=== PATIENT | female | born 1985 | race Caucasian/White ===

== ENCOUNTER 2024-12-12 08:44 | Outpatient (CLI) | payer OTHER, SELFPAY ==
[2024-12-12 09:07] LABS: Hematocrit 43.3 % (37.0-47.0); Hemoglobin 14.1 g/dL (12.0-15.0); Mean Corpuscular HGB Conc 32.6 g/dl (32-36); Mean Corpuscular Hemoglobin 29.9 pg (26-34); Mean Corpuscular Volume 91.7 fl (80-100); Mean Platelet Volume 9.4 fl (7.4-10.4); Platelet Count Result 268 k/mm3 (150-375); Red Blood Count 4.72 M/mm3 (4.2-5.4); Red Cell Distribution Width 13.6 % (11.5-14.5); White Blood Count 6.5 K/mm3 (4.5-10.0)
--- OUTSIDE RECORDS SUMMARY | 2024-12-12 09:08 | XMS_ITS | Data Portability ---
Author Organization [facility], [facility] Address [address] [place] [address] Care Team Providers Care Law Secretary Name Role Phone DOV BUENO Primary Care Provider Assessment No assessment recorded. Plan of Treatment Reminders Order Date Submit Date Provider Last Modified By Organization Details Last Modified Time Details Appointments None recorded. Lab pap, LB + HR HPV + reflex HPV (16+18) 2023 024 [facility], [address], [address], 4 02:13:45 lipid panel, serum 2023 024 [facility] (Lab), [address], [place], [address], 4 14:54:31 CMP, serum or plasma 2023 024 [facility] (Lab), [address] [place], [address], 4 14:54:33 TSH, serum or plasma 2023 024 [facility] (Lab), [address] [place], [address], 4 14:52:12 CBC 2023 024 [facility] (Lab), [address], [place], [address], 4 13:43:09 rapid strep group A, throat 2023 024 [facility] (Lab), [address], [place], [address], 4 17:08:31 rapid flu (A+B) 2023 024 [facility] (Lab), [address], [place], [address], 4 17:08:48 Referral None recorded. Procedures None recorded. Surgeries None recorded. Imaging None recorded. Medication Orders cetirizine 10 mg tablet [address] [facility], [address] [place] [address], [address], 4 09:03:16 fluticasone propionate 50 mcg/actuati on nasal spray,suspe nsion [address] [facility], [address] [place], [place] [address], [address], 4 09:03:20 dexamethaso ne 4 mg tablet [address] [facility], [address] [place] [address], [address], 4 09:03:00 albuterol sulfate HFA 90 mcg/actuati on aerosol inhaler [address] [facility] [address] [facility], [address] [place], [address], 4 09:03:11 benzonatate 200 mg capsule 2023 024 [facility], [address] [place], [address], 4 09:02:55 lisinopril 10 mg tablet 2022 023 [facility], [address] [place], [address], 4 09:09:21 hydroxyzine HCl 10 mg tablet 2022 023 [email or web address] [facility], [address] [place], [address], 15:14:33 Patient TargetsNo targets recorded. Patient Instructions Encounter Date Encounter Id Patient Instructions Last Modified By Organization Details Last Modified Time 06/18/2023 [id number] high blood pressure: care instructions Not available 06/18/2023 09:11:49 learning about high blood pressure Not available 06/18/2023 09:11:49 07/19/2023 [id number] high blood pressure: care instructions Not available 07/19/2023 17:32:55 learning about high blood pressure Not available 07/19/2023 17:32:55 body mass index: care instructions Not available 07/19/2023 18:04:47 learning about healthy weight Not available 07/19/2023 18:04:47 10/05/2023 [id number] sore throat: car e instructions Not available 10/05/2023 15:43:47 cough: care instructions Not available 10/05/2023 15:43:47 10/27/2023 [id number] Well Visit, Ages 18 to 65: Care Instructions Not available 10/27/2023 09:09:49 body mass index: care instructions Not available 10/27/2023 09:09:49 learning about healthy weight Not available 10/27/2023 09:09:49 Will call with lab results. Not available 10/27/2023 09:16:20 12/07/2023 [id number] psoriasis: care instructions Not available 12/07/2023 09:56:48 body mass index: care instructions Not available 12/07/2023 09:54:16 learning about healthy weight Not available 12/07/2023 09:54:16 Reason for Referral None Reported. Results Created Date Observation Date Name Description Value Unit Range Abnormal Flag Note LastModifiedBy Organization Detail LastModifiedTime 10/05/19 24 10/05/2023 URGEN T CARE2 -STRE P A AG, EIA staag2 NOT DETECT ED negati ve [facility] [address] [place] [id number] Not Available [facility] (Lab) [address] [place], [address], 10/05/2023 15:19:18 10/05/19 24 10/05/2023 URGEN T CARE2 -STRE P A AG, EIA expiration date: 03-02 Not Available [facility] (Lab) [address] [place], [address], 10/05/2023 15:19:18 10/05/19 24 10/05/2023 URGEN T CARE2 -STRE P A AG, EIA lot #: [id number] Not Available [facility] (Lab) [address] [place], [address], 10/05/2023 15:19:18 10/05/19 24 10/05/2023 URGEN T CARE2 -STRE P A AG, EIA internal QC: PASS Not Available [facility] (Lab) [address] [place], [address], 10/05/2023 15:19:18 10/05/19 24 10/05/2023 URGEN T CARE2 FLUEN ZA AB,AG EIA fluabag2 NEGATI VE negati ve [facility] URGEN T [facility]ARE AT [facility] [address] [place] [address] Not Available [facility] (Lab) [address] [place], [address], 10/05/2023 15:27:36 10/05/19 24 10/05/2023 URGEN T CARE2 FLUEN ZA AB,AG EIA expiration date: 11-24 Not Available [facility] (Lab) [address] [place], [address], 10/05/2023 15:27:36 10/05/19 24 10/05/2023 URGEN T CARE2 FLUEN ZA AB,AG EIA lot #: [id number] Not Available [facility] (Lab) [address] [place], [address], 10/05/2023 15:27:36 10/05/19 24 10/05/2023 URGEN T CARE2 FLUEN ZA AB,AG EIA internal QC: PASS Not Available [facility] (Lab) [address] [place], [address], 10/05/2023 15:27:36 10/27/19 24 10/27/2023 CBC W-PLT WBC 7.80 K/uL 3.98-1 0.04 The follo wing test( s) was perfo rmed on the Sysme x XN-20 00 (Larry tolog y Kamini zer). Pleas e take note of new refer ence range s. Not Available [facility] (Lab) [address] [place], [address], 10/27/2023 13:43:09 10/27/19 24 10/27/2023 CBC W-PLT RBC 5.10 mil/u L 3.93-5 .22 Not Available [facility] (Lab) [address] [place], [address], 10/27/2023 13:43:09 10/27/19 24 10/27/2023 CBC W-PLT HGB 15.2 gm/dL 12.0-1 6.0 Not Available [facility] (Lab) [address] [place], [address], 10/27/2023 13:43:09 10/27/19 24 10/27/2023 CBC W-PLT hematocrit 46.5 % 36.0-4 8.0 Not Available [facility] (Lab) [address] [place], [address], 10/27/2023 13:43:09 10/27/19 24 10/27/2023 CBC W-PLT MCV 91.2 fL 79.4-9 4.8 Not Available [facility] (Lab) [address] [place], [address], 10/27/2023 13:43:09 10/27/19 24 10/27/2023 CBC W-PLT MCH 29.8 pg 25.6-3 2.2 Not Available [facility] (Lab) [address] [place], [address], 10/27/2023 13:43:09 10/27/19 24 10/27/2023 CBC W-PLT MCHC 32.7 g/dL 32.2-3 5.5 Not Available [facility] (Lab) [address] [place] [place], [address], 10/27/2023 13:43:09 10/27/19 24 10/27/2023 CBC W-PLT plt 301 K/uL 182-36 9 Not Available [facility] (Lab) [address] [place], [address], 10/27/2023 13:43:09 10/27/19 24 10/27/2023 CBC W-PLT MPV 10.0 fL 9.4-12 .3 Not Available [facility] (Lab) [address], [place], [address], 10/27/2023 13:43:09 10/27/19 24 10/27/2023 THYRO ID STIM TSH TSH 1.21 uIU/m L 0.55-4 .78 Not Available [facility] (Lab) [address] [place], [address], 10/27/2023 14:52:12 10/27/19 24 10/27/2023 LIPID PANEL trig 51 mg/dL 0-150 SAMPL E TYPE: TRIGL YCERI DE REFER ENCE RANGE : Isabel l less than (<)15 0 mg/dl Borde rline High 150-1 99 mg/dl High 200-4 99 mg/dl Very High great er than/ equal to 500 mg/dl Not Available [facility] (Lab) [address], [place], [address], 10/27/2023 14:54:31 10/27/19 24 10/27/2023 LIPID PANEL chol 225 mg/dL 0-200 high Low-r isk level s (kenya rable ) less than 200 mg/dL Moder ate-r isk level s (bord karen e) 200-2 39 mg/dL High- risk level s great er than 240 mg/dL PERFO RMED ON THE ATELL ICA CHEMI STRY PLATF ORM Not Available [facility] (Lab) [address] [place], [address], 10/27/2023 14:54:31 10/27/19 24 10/27/2023 LIPID PANEL HDL 95.9 mg/dL Low (unde sirab le, high risk) : <40 mg/dl High (kenya rable , low risk) : >60 mg/dl Not Available [facility] (Lab) [address] [place], [address], 10/27/2023 14:54:31 10/27/19 24 10/27/2023 LIPID PANEL cldl 119 50-120 Not Available [facility] (Lab) [address] [place], [address], 10/27/2023 14:54:31 10/27/19 24 10/27/2023 LIPID PANEL LDL HDL ratio 1.2 calcu lated 0-4 Not Available [facility] (Lab) [address] [place], [address], 10/27/2023 14:54:31 10/27/19 24 10/27/2023 LIPID PANEL chol HDL ratio 2.30 calcu lated 0-4.0 Not Available [facility] (Lab) [address] [place], [address], 10/27/2023 14:54:31 10/27/19 24 10/27/2023 COMP METAB PANEL sodium 138 mmol/ L 136-14 5 Not Available [facility] (Lab) [address] [place], [address], 10/27/2023 14:54:33 10/27/19 24 10/27/2023 COMP METAB PANEL potassium 4.0 mmol/ L 3.5-5. 1 Not Available [facility] (Lab) [address] [place], [address], 10/27/2023 14:54:33 10/27/19 24 10/27/2023 COMP METAB PANEL chloride 105 mmol/ L 98-109 Not Available [facility] (Lab) [address] [place], [address], 10/27/2023 14:54:33 10/27/19 24 10/27/2023 COMP METAB PANEL CO2 25 mmol/ L 21-32 Not Available [facility] (Lab) [address] [place], [address], 10/27/2023 14:54:33 10/27/19 24 10/27/2023 COMP METAB PANEL gap 12.4 calcu lated 5-15 The calcu lated Anion Gap is deriv ed from the measu remen t of elect rolyt es perfo rmed on the Sieme Atell ica Chemi stry Platf orm Note: Lytes /GAP Earnest bianchi of refer ence range (05/15) Not Available [facility] (Lab) [address] [place], [address], 10/27/2023 14:54:33 10/27/19 24 10/27/2023 COMP METAB PANEL glu 98 mg/dL 74-106 Note: Refer ence Range Persaud e Perfo rmed on the Atell ica Chemi stry Platf orm Not Available [facility] (Lab) [address] [place], [address], 10/27/2023 14:54:33 10/27/19 24 10/27/2023 COMP METAB PANEL BUN 10 mg/dL 9-23 NOTE: BUN Refer ence Range Earnest arias Not Available [facility] (Lab) [address] [place], [address], 10/27/2023 14:54:33 10/27/19 24 10/27/2023 COMP METAB PANEL crea 0.7 mg/dL 0.5-1. 5 Not Available [facility] (Lab) [address] [place], [address], 10/27/2023 14:54:33 10/27/19 24 10/27/2023 COMP METAB PANEL ada 275 mOsm/ kg 270-30 0 Not Available [facility] (Lab) [address] [place], [address], 10/27/2023 14:54:33 10/27/19 24 10/27/2023 COMP METAB PANEL Ca 9.8 mg/dL 8.5-10 .4 Not Available [facility] (Lab) [address] [place], [address], 10/27/2023 14:54:33 10/27/19 24 10/27/2023 COMP METAB PANEL TP 6.9 g/dL 6.4-8. 2 Not Available [facility] (Lab) [address] [place], [address], 10/27/2023 14:54:33 10/27/19 24 10/27/2023 COMP METAB PANEL alb 4.9 g/dL 3.2-4. 8 high Not Available [facility] (Lab) [address] [place], [address], 10/27/2023 14:54:33 10/27/19 24 10/27/2023 COMP METAB PANEL bilt 1.0 mg/dL 0.3-1. 2 PERFO RMED ON THE AT[facility] CHEMI STRY PLATF ORM Note: Refer ence Delbert persaud es on Not Available [facility] (Lab) [address] [place], [address], 10/27/2023 14:54:33 10/27/19 24 10/27/2023 COMP METAB PANEL AST 23 U/L 15-37 Not Available [facility] (Lab) [address] [place], [address], 10/27/2023 14:54:33 10/27/19 24 10/27/2023 COMP METAB PANEL ALP 50 U/L 45.0-1 29.0 Not Available [facility] (Lab) [address] [place], [address], 10/27/2023 14:54:33 10/27/19 24 10/27/2023 COMP METAB PANEL ALT 24 U/L 10-49 Not Available [facility] (Lab) [address] [place], [address], 10/27/2023 14:54:33 10/27/19 24 10/27/2023 COMP METAB PANEL BUN/creat ratio 14 calcu lated 6-22 Not Available [facility] (Lab) [address] [place], [address], 10/27/2023 14:54:33 10/27/19 24 10/27/2023 COMP METAB PANEL GFR 99 calcu lated GFR is calcu lated based on [facility] (Afri can Ameri can or Non-A frica n Ameri can) Age and Sex from the [facility] Minorbreanna rodriguez on Infor matio n. REFER ENCE RANGE S: [place] ge GFR for Healt hy Adult s: >6 0 mL/mi n/1.7 3 m^2 Chron ic Kidne y Disea se: 15 - 60 mL/mi n/1.7 3 m^2 Kidne y Failu re: <15 mL/mi n/1.7 3 m^2 NOTE: Refer ence range s are not avail able for patie nts <18 years of age and will be resul lucero TNP (test not perfo rmed) . The eGFR equat ion has not been valid ated in patie nts older than 70, but an MDRD- deriv ed eGFR may still be a usefu l tool for jocelyni mariza wen for patie nts older than 70. Not Available [facility] (Lab) [address], [place], [address], 10/27/2023 14:54:33 Result Notes None recorded. Procedures Surgical History Date Name Laterality Status Provider Name and Address Organization Details Recorded Time 10/27/19 24 Lab Draw - Routine venipuncture completed Lali Garcia CMA [facility] 10/27/2023 09:38:37 09/27/19 00 Date of Last Pap Smear completed Heike Ramirez CMA [facility] 06/18/2023 09:04:05 Ear Tubes completed Heike Ramirez CMA [facility] 10/26/2022 09:16:50 Imaging Results None recorded. Procedure Notes None recorded. Medical Equipment None Reported. Allergies Allergen ID Allergen Name Allergen Category Reaction Reaction Severity Criticality Documentation Date Start Date Code Code System Note Provider Name and Address Organization Details Recorded Time [id number] amoxicill in medicatio n Not available Not available Not available 10/26/2022 723 RxNorm JUAN JOSE Allred [facility] 09:12:53 [id number] amoxicill in trihydrat e medicatio n itching moderate Not available 06/18/2023 [id number] RxNorm JUAN JOSE Allred [facility] 09:04:05 Medications Name Sig Start Date Stop Date Status Note LastModified by Organization Details LastModified Time cetirizine 10 mg tablet Take 1 tablet every day by oral route at dinner for 30 days. 10/27 completed Not Available Not Available Not Available benzonatate 200 mg capsule TAKE 1 CAPSULE BY MOUTH THREE TIMES DAILY FOR 10 DAYS 10/27 completed Not Available Not Available Not Available doxycycline monohydrate 100 mg capsule TAKE 1 CAPSULE BY MOUTH TWICE DAILY FOR 7 DAYS active Not Available Not Available No t Available dexamethason e 4 mg tablet TAKE 1 TABLET BY MOUTH TWICE DAILY FOR 4 DAYS 10/27 completed Not Available Not Available Not Available lisinopril 10 mg tablet TAKE 1 TABLET BY MOUTH ONCE DAILY FOR 30 DAYS 10/27 completed Not Available Not Available Not Available albuterol sulfate HFA 90 mcg/actuatio n aerosol inhaler INHALE 2 PUFFS BY MOUTH EVERY 4 HOURS 10/27 completed Not Available Not Available Not Available hydroxyzine HCl 10 mg tablet TAKE 1 TABLET BY MOUTH THREE TIMES DAILY NEEDED FOR 30 DAYS 2023 active Not Available Not Available Not Avai lable fluticasone propionate 50 mcg/actuatio n nasal spray,suspen griffin USE 1 SPRAY(S) IN EACH NOSTRIL ONCE DAILY 10/27 completed Not Available Not Available Not Available Vitals Date Recorded Body height Body mass index (BMI) Body weight Body temperature Heart rate Respiratory rate Oxygen saturation Oxygen saturation in Arterial blood by Pulse oximetry Systolic blood pressure Diastolic blood pressure Provider Name and Address Organization Details Last Updated DateTime 3 172.72 cm 30.3 kg/m2 97651.8 8 g 98.2 [degF] 72 /min 18 /min 98 % 98 % 140 mm[Hg] 91 mm[Hg] Heike Ramirez CMA [facility] 3 09:03:18 Date Recorded Body height Body mass index (BMI) Body weight Body temperature Heart rate Respiratory rate Oxygen saturation Oxygen saturation in Arterial blood by Pulse oximetry Systolic blood pressure Diastolic blood pressure Provider Name and Address Organization Details Last Updated DateTime 3 172.72 cm 31.5 kg/m2 06051.6 2 g 97.8 [degF] 70 /min 18 /min 98 % 98 % 132 mm[Hg] 84 mm[Hg] Heike Ramirez CMA [facility] 3 17:15:31 Date Recorded Body height Heart rate Body mass index (BMI) Body weight Body temperature Oxygen saturation Oxygen saturation in Arterial blood by Pulse oximetry Respiratory rate Pain severity - 0-10 verbal numeric rating [Score] - Reported Systolic blood pressure Diastolic blood pressure Provider Name and Address Organization Details Last Updated DateTime 4 172.72 cm 88 /min 30.6 kg/m2 44554.5 g 98.3 [degF] 98 % 98 % 18 /min 2 157 mm[Hg] 85 mm[Hg] Shaista Gusman RN [facility] 4 15:13:46 Date Recorded Body height Respiratory rate Body mass index (BMI) Body weight Body temperature Heart rate Oxygen saturation Oxygen saturation in Arterial blood by Pulse oximetry Systolic blood pressure Diastolic blood pressure Provider Name and Address Organization Details Last Updated DateTime 4 172.72 cm 18 /min 30.8 kg/m2 54119.0 6 g 98.1 [degF] 78 /min 97 % 97 % 122 mm[Hg] 67 mm[Hg] Lali Garcia CMA [facility] 4 09:00:32 Date Recorded Body height Respiratory rate Body mass index (BMI) Body weight Body temperature Heart rate Oxygen saturation Oxygen saturation in Arterial blood by Pulse oximetry Systolic blood pressure Diastolic blood pressure Provider Name and Address Organization Details Last Updated DateTime 4 172.72 cm 18 /min 30.7 kg/m2 22609.3 6 g 98 [degF] 73 /min 97 % 97 % 145 mm[Hg] 80 mm[Hg] Lali Garcia CMA [facility] 4 09:34:21 Social History Question Answer Notes LastModified by Organizat ion Details LastModified Time Tobacco Smoking Status Former Smoker Heike Ramirez CMA [facility] 06/18/2023 09:04:06 Do You Have An Advance Directive? No [email or web address] Information not available 07/19/2023 What Is Your Level Of Alcohol Consumption? Occasional [email or web address] Information not available 07/19/2023 How Many Times Per Week Do You Consume Alcohol? 1-2 Times Per Week [email or web address] Information not available 07/19/2023 Are You Blind Or Do You Have Difficulty Seeing? Yes [email or web address] Information not available 07/19/2023 What Is Your Level Of Caffeine Consumption? Heavy [email or web address] Information not available 07/19/2023 How Much Tobacco Do You Chew? None Information not available 07/19/2023 Are You Currently Employed? Yes [email or web address] Information not available 07/19/2023 Are You Deaf Or Do You Have Serious Difficulty Hearing? No [email or web address] Information not available 07/19/2023 What Type Of Diet Are You Following? REGULAR [email or web address] Information not available 07/19/2023 Which Illicit Or Recreational Drugs Have You Used? [place] [email or web address] Information not available 07/19/2023 Do You Or Have You Ever Used E-cigarettes Or Vape? Former User Of Electronic Cigarettes [email or web address] Information not available 07/19/2023 What Is The Highest Grade Or Level Of School You Have Completed Or The Highest Degree You Have Received? [id number] [email or web address] Information not available 07/19/2023 What Is Your Occupation? [employer] [email or web address] Information not available 07/19/2023 How Many Times Per Week Do You Exercise? 5-7 Times Per Week [email or web address] Information not available 07/19/2023 When Did You Quit Smoking? 6-10yearssince lastcigarette [email or web address] Information not available 07/19/2023 Are There Any Guns Present In Your Home? No [email or web address] Information not available 07/19/2023 Do You Feel Safe In Your Home? Yes [email or web address] Information not available 10/05/2023 Have You Ever Been Hurt By Someone Taking Care Of You? No [email or web address] Information not available 10/05/2023 Has Anyone Touched You In A Way You Didn t Like Or Threatened To Hurt You? No [email or web address] Information not available 10/05/2023 Any Thoughts Of Suicide? No Information not available 10/05/2023 Do You Have A Medical Power Of Jewel Bearing Turner? No [email or web address] Information not available 07/19/2023 What Was The Date Of Your Most Recent Tobacco Screening? 12/07/2023 [email or web address] Information not available 12/07/2023 Do You Have Any Pets? Yes [email or web address] Information not available 07/19/2023 What Is Your Relationship Status? Domestic Partner [email or web address] Information not available 07/19/2023 Do You Use Your Seat Belt Or Car Seat Routinely? Yes [email or web address] Information not available 07/19/2023 Are You Sexually Active? Yes [email or web address] Information not available 07/19/2023 Do You Have Smoke And Carbon Monoxide Detectors In Your Home? Yes [email or web address] Information not available 07/19/2023 Are You Passively Exposed To Smoke? No [email or web address] Information no t available 07/19/2023 Do You Or Have You Ever Used Smokeless Tobacco? Never Used Smokeless Tobacco [email or web address] Information not available 07/19/2023 How Much Tobacco Do You Smoke? No [email or web address] Information not available 07/19/2023 Do You Use Any Illicit Or Recreational Drugs? Yes [email or web address] Information not available 07/19/2023 Do You Use Sunscreen Routinely? Yes [email or web address] Information not available 07/19/2023 How Many Years Have You Smoked Tobacco? 10 [email or web address] Information not available 07/19/2023 Have You Recently Traveled Abroad? No [email or web address] Information not available 07/19/2023 Do You Or Have You Ever Used Any Other Forms Of Tobacco Or Nicotine? Yes [email or web address] Information not available 07/19/2023 Sex: Unknown Functional Status Question Answer Note LastModified by Organizat ion Details LastModified Time Do you have difficulty walking or climbing stairs? No [email or web address] Information not available 07/19/2023 Do you have difficulty doing errands alone? No oekeqmyqyi41 Information not available 07/19/2023 Are you able to care for yourself? Yes [email or web address] Information not available 07/19/2023 Do you have difficulty dressing or bathing? No [email or web address] Information not available 07/19/2023 What is your exercise level? Occasional [email or web address] Information not available 07/19/2023 Mental Status Question Answer Note LastModified by Organization D etails LastModified Time Do you have difficulty concentrating, remembering or making decisions? No [email or web address] Information no t available 07/19/2023 Family History Relationship Description Onset Age of this Age Resolved Age Notes LastModified by Organization Details LastModified Time Father Osteopenia [email or web address] Not cecy ilable 06/18/2023 09:04:05 Father Atrial fibrillation [email or web address] Not available 06/18/2023 09:04:05 Father Sleep apnea [email or web address] Not av ailable 06/18/2023 09:04:05 Father Osteoporosis [email or web address] Not a vailable 06/18/2023 09:04:05 Father Alcoholism [email or web address] Not cecy ilable 06/18/2023 09:04:05 Mother No current problems or disability [email or web address] Not available 09:04:05 Maternal Grandmother Diabetes mellitus fhzuvmxbdw76 Not available 09:04:05 Maternal Grandfather Cerebrovascu lar accident [email or web address] Not available 06/18/2023 09:04:05 Maternal Grandfather Alzheimer's disease [email or web address] Not available 09:04:05 Medical History Condition Response PATIENT DENIES SIGNIFICANT PAST MEDICAL HISTORY Y Gynecological History Statement/Question Response HPV Vaccine Y Date of Last Pap Smear 09/27/1999 LMP Approximate Date of LMP 07/12/2023 Obstetrics History GPAL:G 0 P 0 0 0 0 Immunizations Vaccine Type Date Status Note Provider Nam e and Address Organization Details Recorded Time Influenza, split virus, quadrivalent, PF 10/27/2023 completed DOV BUENO, BODY MECHANIC APPRENTICE [address], [place], [address], [facility] [place] [place] [facility] 10/27/2023 09:57:06 COVID-19, mRNA, LNP-S, bivalent, PF, 30 mcg/0.3 mL dose 07/19/2022 completed Heike Ramirez CMA null, [facility] [place] [facility] 06/18/2023 09:04:06 MMR 07/07/1995 completed Heike Ramirez CMA null, [place] - [facility] [place] [facility] 06/18/2023 09:04:06 tetanus toxoid, unspecified formulation 09/27/2020 completed Heike Ramirez CMA null, [place] - [facility] [place] [facility] 06/18/2023 09:04:06 influenza, unspecified formulation 07/01/2022 completed Heike Ramirez CMA null, [place] - [facility] [place] [facility] 06/18/2023 09:04:06 Hep B, unspecified formulation 09/27/1998 brittani Ramirez CMA null, [place] - [facility] [place] [facility] 06/18/2023 09:04:06 Hep A, unspecified formulation 09/27/1999 brittani Ramirez CMA null, [place] - [facility] [place] [facility] 06/18/2023 09:04:06 Influenza, split virus, quadrivalent, PF 07/19/2022 completed Lali Garcia CMA null, [place] - [facility] [place] [facility] 10/27/2023 08:56:41 Past Encounters Encounter ID Performer Location Encounter Start Date Encounter Closed Date Diagnosis/Indication Diagnosis SNOMED-CT Code Diagnosis ICD10 Code Diagnosis Note [id number] [facility] [address] [place] [id number] 10/26/2022 08:48:07 10/26/2022 09:32:49 Adult health examination 473894786 Z00.00 Recommende d to have eye exam, and to schedule pap at next visit. Active or passive immunization 784737338 Z23 Uptodate with flu shot and TDAP. Body mass index 30+ - obesity 881374092 Z68.31 Elevated blood-pressure reading without diagnosis of hypertension 494224106 R03.0 Monitor BP at home and record daily. DASH diet and exercise. BP goal <140/90. F/up in 3 months or sooner if BP is >140/90. Labile hyp ertension due to being in a clinical environment 273620401 I15.8 States BP at home is 120-130/80 s. Anxiety 46180675 F41.9 Managed with marijuana. F/up in 6 months. Difficulty sleeping 3013 23503 Z72.820 Managed with marijuana. F/up in 6 months. [id number] [facility] [address] [place] [id number] 06/18/2023 08:51:27 06/18/2023 09:17:49 Essential hypertension 32829571 I10 Monitor BP at home and record daily. Start lisinopril 10mg and use as needed if BP is >140/90. BP has been elevated at times due to stress at work. Discussed side effects. F/up in 1 month. Anxiety 17064309 F41.9 Do trial of of hydroxyzin e. Discussed side effects. F/up in 1 month. Difficulty sleeping 3013 73184 Z72.820 Discussed hydroxyzin e may help with this. F/up in 1 month. [id number] [facility] [address] [place] [id number] 07/19/2023 16:51:54 07/19/2023 17:42:11 Essential hypertension 86361810 I10 Managed with no meds at this time. Encouraged exercise and healthy diet. Discussed to take lisinopril 10 mg daily as needed if BP is more than 140/90. Monitor BP at home and record daily. BP goal <140/90. F/up in 3 months. Anxiety 52194242 F41.9 Managed with hydroxyzin e 10mg TID as needed. F/up in 6 months. Difficulty sleeping 3013 06950 Z72.820 Managed with hydroxyzin e as needed. F/up in 6 months. Body mass index 30+ - obesity 400757655 Z68.31 [id number] GEORGIA ROSS, ASSISTANT CUSTOMER SERVICE MANAGER [facility] [address] [place] [id number] 10/05/2023 14:57:27 10/05/2023 15:44:43 Cough 32638380 R05.9 Pain in throat 150436728 R07.0 Expiratory wheezing 9763 007 R06.2 Viral uppe r respiratory tract infection 349101426 J06.9 [id number] DOV BUENO, BODY MECHANIC APPRENTICE [facility] AT [address] [place] [id number] 10/27/2023 08:54:16 10/27/2023 09:45:27 Adult health examination 686548091 Z00.00 Recommende d to schedule pap at next visit. Anxiety 94040713 F41.9 Managed with hydroxyzin e 10mg as needed and cannabis. F/up in 6 months. Active or passive immunization 107805993 Z23 Uptodate with TDAP. Administer ed flu shot. Body mass index 30+ - obesity 758270722 Z68.31 Difficulty sleeping 3013 06786 Z72.820 Managed with hydroxyzin e as needed. F/up in 6 months. Epigastric pain 97722322 R10.13 States had mild epigastric pain after drinking sparkling water 2 days ago. Denies nausea, vomiting, or diarrhea. Discussed she can take OTC pepcid, if symptoms don't improve to call office. Will order other tests. [id number] DOV BUENO NP [facility] AT [address] [place] [id number] 12/07/2023 09:23:41 12/07/2023 10:13:40 Gynecologic examination 86442898 Z01.419 Screening for malignant neoplasm of cervix 488133114 Z12.4 Z01.419 Body mass index 30+ - obesity 906765718 Z68.31 Psoriasis 8833993 L40.9 Keep skin hydrated and moistirize d. May use OTC hydorcorti sone cream as needed. F/up PRN. Health Concerns Section Related Observation LastModified by Organization Detai ls LastModified Time None Recorded Concern Status LastModified by Organization Details LastModified Time None Recorded Advance Directives Directive N: Payers Encounter Date Sequence Insurance Name Policy Number Policy Jones Covered Member ID Jones Member ID Guarantor Name 06/18/2023 1 [facility] [id number] [employer] [place] [id number] [facility] 07/19/2023 1 [place] [id number] [employer] [id number] [facility] 10/05/2023 1 [facility] [id number] [employer] [place] [id number] [facility] 10/27/2023 1 [facility] [id number] [employer] [place] [id number] [facility] 12/07/2023 1 [facility] [id number] [facility] [id number] [facility] Notes Date Note Type Note Provider Name and Address Organization Details Recorded Time 06/18/2023 text/html F/up on elevated BP- States her BP was 170/105 this week. Reports has been under a lot of stress at work. States her BP is elevated when she is under a lot of stress. Reports that at times her BP will be 130/80s. Denies chest pain or SOB. F/up on anxiety- Takes cannabis to help, but that does not help much all the time. F/up on difficulty sleeping- Takes cannabis but that does not help. States she takes cannabis about 3-5 days per week. DOV BUENO NP [address], [place], [address], [facility] [place] [facility] 06/18/2023 09:20:11 07/19/2023 text/html F/up on HTN- Pt was prescribed lisinopril 10mg daily but reports has not taken it. States she has been taking her BP at home. Pt brought log in and BP ranges 130/70-80s, and with one being 140s on systolic. Denies chest pain or SOB. Reports that she will start to be more active. F/up on anxiety- Managed with hydroxyzine 10mg TID as needed. Has used it a couple of times and that did help. F/up on difficulty sleeping- Managed with hydroxyzine 10mg as needed. DOV BUENO NP [address], [place], [address], [facility] 07/19/2023 18:05:02 10/05/2023 text/html patient presents with complaint of sore throat, headache, runny nose, cough with over the past 2 days. Patient denies any known fevers, nausea, vomiting or shortness of breath. Patient did not take any qdbh-lfc-vapznec medications for symptoms or pain currently as a 2/10 scratch like pain throat when swallowing or coughing GEORGIA ROSS CNP [address], [place], [address], [facility] 10/05/2023 15:44:33 10/27/2023 text/html Here for puneet umaña. Pt states she had some mild epigastric pain 2 days ago after she drank some sparkling water. Reports she does drink a lot of it. Currently denies any nausea, vomiting, diarrhea or constipation. Pt states that BP at home is 130/80s. Denies chest pain or SOB. States she uses marijuana to help with sleep and with her anxiety. Pt uses hydroxyzine as needed for sleep. DOV BUENO NP [address], [place], [address], [facility] 10/27/2023 09:57:36 12/07/2023 text/html Here for pap Pt states she has psoriasis to her left knee. Has used OTC hydorcortisone cream and that has helped. DOV BUENO NP [address], [place], [address], [facility] 12/07/2023 09:57:27 OBGyn Episode No OBEpisode recorded.
--- OUTSIDE RECORDS SUMMARY | 2024-12-12 09:08 | XMS_ITS | Clinical Summary ---
Author Organization [facility] [id number] [facility] Address [address] [place] [address] Care Team Providers Care Treating Inspector Name Role Phone Jazmyn Marcelinaanjali DE LUNAP Primary Care Provider [phone] Allergies Active Allergy Reactions Criticality Noted Date Comments Amoxicillin Hives,Rash,Unknown High 04/29/2018 Medications acetaminophen (TYLENOL) 500 mg tablet Take 500 mg by mouth every 6 hours as needed. Active cyclobenzaprine (FLEXERIL) 10 mg tablet 07/29/2021 Active doxylamine (UNISOM) 25 mg Tablet Take 12.5 mg by mouth. Active ibuprofen (MOTRIN) 200 mg tablet Take 200 mg by mouth every 6 hours as needed. 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 Gender Identity Not on file Sexual Orientation Not on file Last Filed Vital Signs Vital Sign Reading Time Taken Comments Blood Pressure - - Pulse - - Temperature - - Respiratory Rate - - Oxygen Saturation - - Inhaled Oxygen Concentration - - Weight 87.1 kg (192 lb) 10/02/2021 2:16 PM POWER SWITCHBOARD OPERATOR Height 172.7 cm (5' 8 ) 10/02/2021 2:16 PM POWER SWITCHBOARD OPERATOR Body Mass Index 29.19 10/02/2021 2:16 PM POWER SWITCHBOARD OPERATOR Plan of Treatment Health Maintenance Due Date Last Done Comments HEPATITIS B VACCINES (1 of 3 - 19+ 3-dose series) 01/2003 PNEUMOCOCCAL VACCINE 0-49 YEARS (1 of 2 - PCV) 003 CERVICAL CANCER SCREENING 2014 HPV VACCINES (2 - 3-dose SCDM series) 07/08/2021 INFLUENZA VACCINE (#1) 2024 BREAST CANCER SCREENING 2024 Preventative Visit- Commercial 09/27/2024 DTAP/TDAP/TD VACCINES (2 - Td or Tdap) 06/10/2031 Insurance Care Teams Treating Inspector Relationship Specialty Start Date End Date Marcelina Eldridge FNP [address] [place] [phone] PCP - General Nurse Practitioner Family 09/12/21
--- OUTSIDE RECORDS SUMMARY | 2024-12-12 09:08 | XMS_ITS | Clinical Summary ---
Author Organization [facility] Address [address] [place] [address] Care Team Providers Care Infrastructure Engineer Name Role Phone Cricket Shelby MD Primary Care Provider [phone] Charles Coleman MD Unavailable [phone] Source Comments [facility],non-owned Affiliates and Associated Physician Practices is amultiple site organization consisting of ambulatory clinics and hospital sitesin [place], [place] and [place]. This disclosure is being madepursuant to the Care Everywhere program and may not contain all information available regarding this patient. Last updated 18.[facility] Allergies Active Allergy Reactions Criticality Noted Date Comments Amoxicillin Unknown 04/29/2018 Medications * Be aware that medications may not be up to date on this document. Alwaysverify current medications with the patient. Medication Sig Dispensed Refills Start Date End Date Status acetaminophen (TYLENOL) 500 MG tablet Take 500 mg by mouth every 6 hours as needed Active ibuprofen (MOTRIN) 200 MG tablet Take 200 mg by mouth every 6 hours as needed Active doxylamine (UNISOM SLEEPTABS) 25 MG tablet Take 12.5 mg by mouth at bedtime Active Salicylic Acid (CERAVE PSORIASIS) 2 % CREA by Apply externally route once daily 141 g 3 06/10/2021 Active tazarotene (TAZORAC) 0.05 % cream Apply to affected area at bedtime 30 g 3 06/10/2021 Active Active Problems Problem Noted Date Diagnosed Date Psoriasis 06/11/2021 Nonspecific reaction to tuberculin skin test Immunizations Name Administration Dates Next Due Human Papilloma Virus Ninevalent Vaccine 021 INFLUENZA VACCINE 06/11/2021 TDAP (7yrs+) 06/10/2021 Family History Relation Name Status Comments Father osteopenia,afib,alcohol Other Maternal Grandmother dm2,afib Other Paternal Grandfather leukemia Other Paternal Grandmother parkinsons Other Sister Down syndrome Other Social History Tobacco Use Types Packs/Day Years Used Date Smoking Tobacco: Former Cigarettes Q uit: 2017 Smokeless Tobacco: Never Comments:7 pack year history Alcohol Use Standard Drinks/Week Comments Yes 2 (1 standard drink = 0.6 oz pure alcohol) drinks usually on vacation; hx feeling guilty in past PHQ-2 Answer Date Recorded PHQ2 TOTAL SCORE 0 06/10/2021 Sex and Gender Information Value Date Recorded Sex Assigned at Not on file Gender Identity Not on file Sexual Orientation Not on file Last Filed Vital Signs Vital Sign Reading Time Taken Comments Blood Pressure 148/93 06/10/2021 4:11 PM CDT Pulse 74 06/10/2021 4:11 PM CDT Temperature 36.3 C (97.3 F) 06/10/2021 2:41 PM CDT Respiratory Rate - - Oxygen Saturation 98% 06/10/2021 2:41 PM CDT Inhaled Oxygen Concentration - - Weight 88.2 kg (194 lb 6.4 oz) 06/10/2021 2:41 P M CDT Height 172.7 cm (5' 8 ) 06/10/2021 2:41 PM CDT Body Mass Index 29.56 06/10/2021 2:41 PM CDT Plan of Treatment Health Maintenance Due Date Last Done Comments MAMMOGRAM 1984 PAP SMEAR 1984 HEPATITIS B VACCINE (1 of 3 - 19+ 3-dose series) 2003 HPV VACCINE (2 - 3-dose SCDM series) 07/08/2021 06/10/2021 COVID-19 VACCINE (3 - 2023-2 5 season) 2024 01/25/2021, 12/28/2020 INFLUENZA VACCINE (#1) 2024 06/11/2021 DEPRESSION SCREENING 09/27/2024 LIPID TESTING 06/11/2026 06/11/2021 DTAP/TDAP/TD VACCINES (2 - T d or Tdap) 06/10/2031 06/10/2021 ZOSTER VACCINE (1 of 2) 2034 HEPATITIS C SCREENING Completed 09/27/2017 (Done Outside Per Patient) HIV SCREENING Completed 09/27/2017 (Done Outside Per Patient) HIB VACCINE Aged Out No longer eligi ble based on patient's age to complete this topic MENINGOCOCCAL (Group B) VACCINE SHARED DECISION-MAKING Aged Out No longer eligible based on patient's age to complete this topic MENINGOCOCCAL GROUPS A/C/Y/W VACCINE Aged Out No longer eligible based on patient's age to complete this topic PNEUMOCOCCAL VACCINE Aged Out No long er eligible based on patient's age to complete this topic Procedures Procedure Name Priority Date/Time Associated Diagnosis Comments LIPID PROFILE Routine 06/11/2021 9:54 AM CDT Healthcare maintenance from Last 3 Months or Most Recently Relevant to Health Maintenance Results * LIPID PROFILE (06/11/2021 9:54 AM CDT) [facility] Signature Cholesterol Total 182 <200 mg/dL 06/11/2021 11:34 AM [facility] HDL 77 >40 mg/dL 06/11/2021 11:34 AM [facility] Comment: ATP III Classification of HDL Cholesterol: <40 mg/dL: Considered a major risk factor. >60 mg/dL: Considered a negative risk factor. LDL Calculated 89 <100 mg/dL 06/11/2021 11:34 AM [facility] Comment: ATP III Classification of LDL Cholesterol: <100 mg/dL: Optimal 100 - 129 mg/dL: Near Optimal/Above Optimal 130 - 159 mg/dL: Borderline High 160 - 189 mg/dL: High >190 mg/dL: Very High Triglycerides 80 <150 mg/dL 06/11/2021 11:34 AM [facility] Comment: ATP III Classification of Triglycerides: <150 mg/dL: Normal 150 - 199 mg/dL: Borderline High 200 - 400 mg/dL: High >500 mg/dL: Very High Blood BLOOD SPECIMEN / Unknown Lab Venipuncture / Unknown 06/11/2021 9:54 AM CDT 06/11/2021 11:07 AM CDT Osman Tamez III, MD LAB - CHEMISTRY O RDERABLES [facility] [address] [place] [address], [facility] [phone] from Last 3 Months or Most Recently Relevant to Health Maintenance Care Teams Infrastructure Engineer Relationship Specialty Start Date End Date Cricket Shelby MD [address] [facility] [address] [place] [address] PCP - General 03/13/21 Charles Coleman MD [address] [facility] [address] OF [facility] INTERNAL MEDICINE [place], [place] Resident - PCP Internal Medicine 06/16/21
--- OUTSIDE RECORDS SUMMARY | 2024-12-12 09:08 | XMS_ITS | Clinical Summary ---
Author Organization [facility] Address [address] [place] [address] Care Team Providers Care Hand Ii Blocker Name Role Phone Marcelina Eldridge MAXWELL Primary Care Provider [phone] Allergies Active Allergy Reactions Criticality Noted Date Comments Amoxicillin Unknown 04/29/2018 Medications acetaminophen 500 MG tablet Take 500 mg by mouth every 6 (six) hours as needed for Pain. Active ibuprofen 200 MG tablet Take 200 mg by mouth every 6 (six) hours as needed for Pain. Active doxylamine 25 MG tablet Take 12.5 mg by mouth. Active Active Problems Problem Noted Date Diagnosed Date Other intervertebral disc displacement, lumbar r egion 09/02/2021 Other intervertebral disc degeneration, lumbar r egion 09/02/2021 Spinal stenosis of lumbar re gion without neurogenic claudication 09/02/2021 Sacroiliitis 09/02/2021 Numbness and tingling of left lower extremity Urinary hesitancy 08/01/2021 Urinary urgency 08/01/2021 Radiculopathy, lumbar region 08/01/2021 Psoriasis 06/11/2021 Tuberculin test reaction 06/11/2021 Obesity, Class I, BMI 30.0-34.9 (see actual BMI) 05/08/2019 Vision loss of left eye 05/08/2019 Chronic nonintractable headache, unspecified hea dache type 05/08/2019 Vitamin D deficiency 05/09/2018 Abnormal CBC 04/29/2018 Asthma (HHS/HCC) 04/29/2018 Chest pain, exertional 04/29/2018 Neuropathy 04/29/2018 Immunizations Name Administration Dates Next Due HPV GARDASIL 9-VALENT 06/10/2021 Hepatitis A (Havrix 1440 [address].U) 12/06/2009,2003 Influenza (Generic) 06/11/2021 Tdap (Generic) 06/10/2021 Varicella (Varivax) 12/09/2009 Family History Medical History Relation Comments Alcohol Abuse Maternal Grandfather Stroke Maternal Grandfather Diabetes Maternal Grandmother Hyperlipidemia Maternal Grandmother No Known Problems Mother Cancer Paternal Grandfather leukemia Parkinson's Disease Paternal Grandmother Alzheimers Neg Hx Relation Status Comments Father Alive Maternal Grandfather Maternal Grandmother Mother Alive Paternal Grandfather Paternal Grandmother Social History Tobacco Use Types Packs/Day Years Used Date Smoking Tobacco: Former Cigarettes 1 10 Smokeless Tobacco: Never Alcohol Use Standard Drinks/Week Comments Yes 0 (1 standard drink = 0.6 oz pur e alcohol) rare AUDIT-C Answer Date Recorded Frequency of Alcohol Consumption Monthly or less 05/08/2019 Average Number of Drinks Not on file Frequency of Binge Drinking Not on file 04/27 PHQ-2 Answer Date Recorded PHQ-2 Score 0 09/04/2019 Comments No Sex and Gender Information Value Date Recorded Sex Assigned at Not on file Legal Sex Female 8:36 AM CDT Gender Identity Not on file Sexual Orientation Not on file Last Filed Vital Signs Vital Sign Reading Time Taken Comments Blood Pressure 138/80 09/02/2021 9:52 AM HOT MILL SHEARER Pulse 89 09/02/2021 9:52 AM HOT MILL SHEARER Temperature 36.8 C (98.3 F) 07/29/2021 10:56 AM CDT Respiratory Rate 16 07/29/2021 10:56 AM CDT Oxygen Saturation 99% 09/02/2021 9:52 AM HOT MILL SHEARER Inhaled Oxygen Concentration - - Weight 87.4 kg (192 lb 9.6 oz) 09/02/2021 9:52 A M HOT MILL SHEARER Height 171.5 cm (5' 7.5 ) 09/02/2021 9:52 AM HOT MILL SHEARER Body Mass Index 29.72 09/02/2021 9:52 AM HOT MILL SHEARER Plan of Treatment Health Maintenance Due Date Last Done Comments Cervical Cancer Screening Pa p Smear (Age 30 to 64) Every 3 Years 1984 Annual Physical 1987 Pneumococcal Vaccine: Pediat rics (0 to 5 Years) and At-Risk Patients (6 to 64 Years) (1 of 2 - PCV) 1990 Hepatitis C 2002 Hepatitis B Vaccines (1 of 3 - 19+ 3-dose series) 2003 Cervical Cancer Screening Pa p with HPV Testing (Age 30 to 64) Every 5 Years 2014 Cervical Cancer Screening with HPV 2014 HPV Vaccines (2 - 3-dose SCD M series) 07/08/2021 06/10/2021 COVID-19 Vaccine (1 - 2023-2 5 season) 2024 Influenza Adult (#1) 2024 06/11/2021 Mammogram Screening 2024 DTaP, Tdap and Td Vaccines ( 2 - Td or Tdap) 06/10/2031 06/10/2021 Meningococcal B Vaccine Aged Out No l onger eligible based on patient's age to complete this topic Meningococcal Vaccine Aged Out No edgar samreen eligible based on patient's age to complete this topic RSV Immunizations Under 20 Months Aged Out No longer eligible based on patient's age to complete this topic Insurance [facility] Care Teams Hand Ii Blocker Relationship Specialty Start Date End Date Marcelina Eldridge FNP [address] [place] [address] PCP - General NURSE PRACTITIONER 05/02/18
--- OUTSIDE RECORDS SUMMARY | 2024-12-12 09:08 | XMS_ITS | Encounter Summary ---
Author Organization [facility] Address 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
[2024-12-12 09:43] LABS: Alanine Aminotransferase 24 U/L (6-35); Albumin Level 4.5 g/dL (3.5-5.1); Alkaline Phosphatase 47 U/L (38-126); Anion Gap 10 mmol/L (4-12); Aspartate Amino Transferase 27 U/L (14-36); Bilirubin,Total 1.1 mg/dL (0.2-1.3); Blood Urea Nitrogen 10 mg/dL (7-17); Calcium 9.3 mg/dL (8.4-10.2); Carbon Dioxide 28 mmol/L (22-30); Chloride 100 mmol/L (98-107); Cholesterol 192 mg/dL (0-200); Estimated Glomerular Filt Rate > 60; Glucose 103 mg/dL (65-110); HDL Direct 75 mg/dL; Sodium 138 mmol/L (137-145); Triglycerides 80 mg/dL (<150)
[2024-12-12 10:16] LABS: LDL Cholesterol Direct 88 mg/dL
[2024-12-12 10:19] LABS: Vitamin D 25 Hydroxy 32.9 ng/mL
[2024-12-12 11:08] LABS: Hemoglobin A1C 5.1 % (<5.7)
== END 2024-12-12 08:45 | disposition home or self-care (01) ==
PROVIDERS: PCP Family Medicine; Visit Provider Family Medicine
DX: Z00.00 Encounter for general adult medical examination without abnormal findings (principal); G47.00 Insomnia, unspecified; E66.9 Obesity, unspecified; Z76.89 Persons encountering health services in other specified circumstances
CPT/HCPCS: 36415; 80053; 80061; 82306; 83036; 84443; 85027

== ENCOUNTER 2025-05-07 08:22 | Outpatient (RCR) | payer OTHER, SELFPAY ==
[2025-05-07 09:20] VITALS: BMI 28.8
--- NOTE | 2025-05-08 13:30 | PCDIET ---
Nutrition referral completed. Thank you for the referral.
== END 2025-07-30 09:56 | disposition home or self-care (01) ==
LOC: ANHDMC 08:22
PROVIDERS: PCP Family Medicine; Visit Provider Family Medicine
DX: E66.9 Obesity, unspecified (principal); Z71.3 Dietary counseling and surveillance
CPT/HCPCS: 97802

== ENCOUNTER 2025-06-11 07:40 | Outpatient (CLI) | payer OTHER, SELFPAY ==
--- NOTE | ~2025-06-11 | MM_ITS ---
EXAMINATION: MM screening ligia BI w owen HISTORY: Screening TECHNIQUE: Craniocaudal and mediolateral oblique 3-D tomosynthesis images were obtained and synthetic 2-D images were generated. CAD analysis was submitted and interpreted. COMPARISON: No prior mammogram is available for comparison at this institution. BREAST PARENCHYMAL COMPOSITION: The breasts are heterogeneously dense, which may obscure small masses. FINDINGS: There is no evidence of suspicious mass, calcification, or architectural distortion in either breast to suggest malignancy. There has been no significant interval change. IMPRESSION: 1. No mammographic evidence of malignancy. Recommend routine screening mammography in one year. BI-RADS Category 1: Negative Reviewed, dictated and finalized at location Q. IMPRESSION: 1. No mammographic evidence of malignancy. Recommend routine screening mammogra phy in one year. BI-RADS Category 1: Negative
--- OUTSIDE RECORDS SUMMARY | 2025-06-11 07:58 | XMS_ITS | Clinical Summary ---
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 Gender Identity Not on file Sexual Orientation Not on file Last Filed Vital Signs Vital Sign Reading Time Taken Comments Blood Pressure - - Pulse - - Temperature - - Respiratory Rate - - Oxygen Saturation - - Inhaled Oxygen Concentration - - Weight 87.1 kg (192 lb) 10/02/2021 2:16 PM REPRODUCTION MACHINE LOADER Height 172.7 cm (5' 8) 10/02/2021 2:16 PM REPRODUCTION MACHINE LOADER Body Mass Index 29.19 10/02/2021 2:16 PM REPRODUCTION MACHINE LOADER Plan of Treatment Health Maintenance Due Date Last Done Comments HEPATITIS B VACCINES (1 of 3 - 19+ 3-dose series) 01/2003 HPV/Cotest (21-29) 2005 CERVICAL CANCER SCREENING 2014 HPV/Cotest (30-65) 2014 PAP SMEAR 2014 HPV VACCINES (2 - 3-dose SCDM series) 07/08/2021 BREAST CANCER SCREENING 2024 INFLUENZA VACCINE (#1) 2025 DTAP/TDAP/TD VACCINES (2 - Td or Tdap) 06/10/2031 Insurance [employer] PPO [id number] Care Teams Boat Worker Relationship Specialty Start Date End Date Marcelina Eldridge FNP [address] [place] [phone] PCP - General Nurse Practitioner Family 09/12/21
--- OUTSIDE RECORDS SUMMARY | 2025-06-11 07:58 | XMS_ITS | Encounter Summary ---
Author Organization [facility] Address 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
--- OUTSIDE RECORDS SUMMARY | 2025-06-11 07:58 | XMS_ITS | Clinical Summary ---
Author Organization [facility] Address [address] [place] [address] Care Team Providers Care Forest Ranger Technician Name Role Phone Marcelina Eldridge [place] Primary Care Provider Allergies Active Allergy Reactions Criticality Noted Date [...] Chest pain, exertional 04/29/2018 Neuropathy 04/29/2018 Immunizations Immunization Administration Dates Next Due HPV GARDASIL 9-VALENT [...] Comments Blood Pressure 138/80 09/02/2021 9:52 AM ELEVATOR SUPERVISOR Pulse 89 09/02/2021 9:52 AM ELEVATOR SUPERVISOR Temperature 36.8 C (98.3 F) 07/29/2021 10:56 AM CDT Respiratory Rate 16 07/29/2021 10:56 AM CDT Oxygen Saturation 99% 09/02/2021 9:52 AM ELEVATOR SUPERVISOR Inhaled Oxygen Concentration - - Weight 87.4 kg (192 lb 9.6 oz) 09/02/2021 9:52 A M ELEVATOR SUPERVISOR Height 171.5 cm (5' 7.5) 09/02/2021 9:52 AM ELEVATOR SUPERVISOR Body Mass Index 29.72 09/02/2021 9:52 AM ELEVATOR SUPERVISOR Plan of Treatment Health Maintenance Due Date Last Done Comments Cervical Cancer Screening Pa p Smear (Age 30 to 64) Every 3 Years 1984 Annual Physical 1987 Hepatitis C 2002 Hepatitis B Vaccines (1 of 3 - 19+ 3-dose series) 2003 Pneumococcal Vaccine: Pediat rics (0 to 5 Years) and At-Risk Patients (6 to 49 Years) (1 of 2 - PCV) 2003 Cervical Cancer Screening Pa p with HPV Testing (Age 30 to 64) Every 5 Years 2014 Cervical Cancer Screening with HPV 2014 HPV Vaccines (2 - 3-dose SCD M series) 07/08/2021 06/10/2021 Mammogram Screening 2024 COVID-19 Vaccine (1 - 2023-2 5 season) 2025 DTaP, Tdap and Td Vaccines ( 2 [...] patient's age to complete this topic [place] [address] [place] [address] [facility] Care Teams Forest Ranger Technician Relationship Specialty Start Date End Date Marcelina Eldridge FNP [address] [place] [address] PCP - General NURSE PRACTITIONER 05/02/18
== END 2025-06-11 07:41 | disposition home or self-care (01) ==
PROVIDERS: PCP Family Medicine; Visit Provider Family Medicine
DX: Z12.31 Encounter for screening mammogram for malignant neoplasm of breast (principal)
CPT/HCPCS: 77063; 77067